=== PATIENT | female | born 1980 | race Caucasian/White ===

== ENCOUNTER → 2023-08-21 | Outpatient (REF) | payer OTHER | LOC: M LABSMT 16:16 | PROVIDERS: ATTEND Urology | DX: Z53.9 Procedure and treatment not carried out, unspecified reason (principal); N20.0 Calculus of kidney ==

== ENCOUNTER 2023-11-19 09:01 | Day surgery (SDC) | payer OTHER ==
[~2023-11-19] VITALS: Ht 162.6 cm; Wt 70.3 kg
[~2023-11-19 09:01] MED LIST: ALPR0.5T3 PO; BUPR150T12 PO; BUSP15TA47 PO; CHOL50003 PO; LISI20TA33 PO; MELO7.5T35 PO; TAMS1CAP17 PO
[2023-11-19] MEDS ORDERED: fentaNYL 100 MCG/2 ML INJECTION As Ordered ONE (09:22)
[2023-11-19] MEDS ORDERED: MIDAZOLAM INJ 2MG/2ML VIAL As Ordered ONE (09:22)
[2023-11-19] MEDS ORDERED: propofoL 200 MG/20 ML VIAL As Ordered ONE (09:23)
[2023-11-19] MEDS ORDERED: LIDOCAINE 2% 100MG/5ML SDV (FOR ANES.) As Ordered ONE (09:23)
[2023-11-19] MEDS ORDERED: ONDANSETRON 4MG 2ML VIAL As Ordered ONE (09:25)
[2023-11-19] MEDS ORDERED: KETOROLAC 60MG 2ML VIAL As Ordered ONE (09:36)
[2023-11-19] MEDS: LR 1,000 ML IV SCH (09:56)
[2023-11-19] MEDS: ISOVUE-300 61% 100ML VIAL As Ordered ONE (10:30)
[2023-11-19] MEDS: ceFAZolin SOD 2 GM in IV 1 EA IV ONE (10:59)
[2023-11-19] MEDS ORDERED: PHENYLephrine 500MCG 5ML (100MCG/ML) SYRINGE As Ordered ONE (11:09)
[2023-11-19] MEDS ORDERED: ACETAMINOPHEN 1000MG 100ML IV BAG As Ordered ONE (11:19)
[2023-11-19] MEDS ORDERED: HYDROMORPHONE HCL 0.5 MG/ 0.5 ML SYRINGE IV PRN (11:55)
[2023-11-19] MEDS ORDERED: fentaNYL 100 MCG/2 ML INJECTION IV PRN (11:55)
[2023-11-19] MEDS ORDERED: LR 1,000 ML IV SCH (11:55)
[2023-11-19] MEDS ORDERED: ONDANSETRON 4MG 2ML VIAL IV PRN (11:55)
[2023-11-19] MEDS ORDERED: oxyCODONE 5MG TAB PO PRN (11:55)
[2023-11-19] MEDS ORDERED: OXYB5TAB14 PO (11:59)
[2023-11-19] MEDS ORDERED: MACR100C43 PO (11:59)
[2023-11-19] MEDS ORDERED: HYDR-3713 PO (11:59)
[2023-11-19] MEDS ORDERED: PYRI1TAB5 PO (11:59)
[2023-11-19 13:05] VITALS: BP 129/72; TEMP 97.2; O2SAT 99
== END 2023-11-19 13:43 | disposition home or self-care (01) ==
LOC: M SDC 09:01
PROVIDERS: ATTEND Urology
DX: N20.1 Calculus of ureter (principal); E78.5 Hyperlipidemia, unspecified; Z87.891 Personal history of nicotine dependence; F41.9 Anxiety disorder, unspecified; F32.A Depression, unspecified; Z79.899 Other long term (current) drug therapy
CPT/HCPCS: 52356; 76000; 81025; 82365; C1769; C2617; J0131; J0690; J1100; J1885; J2250; J2371; J2405; J3010; Q9967

== ENCOUNTER 2025-06-22 08:13 | Day surgery (SDC) | payer OTHER ==
[~2025-06-22] VITALS: Ht 162.6 cm; Wt 64.8 kg
[~2025-06-22 08:13] MED LIST changes: +HYDR-3713 PO; +IRON65TA2 PO; +MACR100C43 PO; +OXYB5TAB14 PO; +PROBCAP2 PO; +PROG1CAP8 PO; +PYRI1TAB5 PO; +VITA-199 PO
[2025-06-22] MEDS ORDERED: MIDAZOLAM INJ 2 MG/2 ML VIAL As Ordered ONE (09:17)
[2025-06-22] MEDS ORDERED: GLYCOPYRROLATE INJ 0.2 MG/ML 2 ML VIAL As Ordered ONE (09:17)
[2025-06-22] MEDS ORDERED: LIDOCAINE 2% 100 MG/5 ML SDV (FOR ANES.) As Ordered ONE (09:17)
[2025-06-22] MEDS: LR 1,000 ML IV SCH (09:25)
[2025-06-22] MEDS: ceFAZolin SOD 2 GM IV ONCE IV ONE (09:38)
[2025-06-22] MEDS ORDERED: ONDANSETRON 4MG 2ML VIAL As Ordered ONE (09:45)
[2025-06-22] MEDS ORDERED: LR 1,000 ML IV SCH (10:15)
[2025-06-22] MEDS ORDERED: ONDANSETRON 4MG 2ML VIAL IV PRN (10:15)
[2025-06-22 11:10] VITALS: BP 119/75; TEMP 97; O2SAT 97
== END 2025-06-22 11:36 | disposition home or self-care (01) ==
LOC: M SDC 08:13
PROVIDERS: ATTEND Urology
DX: N20.0 Calculus of kidney (principal); I10 Essential (primary) hypertension; F41.9 Anxiety disorder, unspecified; F32.A Depression, unspecified; G47.33 Obstructive sleep apnea (adult) (pediatric); Z79.899 Other long term (current) drug therapy
CPT/HCPCS: 50590; 74018; 81025; J0688; J1596; J2250; J2405; J3010